=== PATIENT | male | born 1980 | race Caucasian/White ===

== ENCOUNTER 2016-08-08 06:16 | Observation (INO) | payer OTHER ==
[~2016-08-08] VITALS: Ht 185.4 cm; Wt 88.5 kg
--- NOTE | ~2016-08-08 | H ---
[facility] [address] [address] HISTORY AND PHYSICAL Name: LORENAMICHAEL DIANE Room #: 432-P [facility] Maggie Bee#: [id number] Admission: 08/08/16 Attend Phys: Ge Carrasco MD Discharge: 08/09/16 Date of : 82 Report #: [id number] THIS REPORT FOR: //name// For History and Physical, please see office documentation/handwritten note in the patient's medical record. By: [id number] Ge Carrasco MD /
--- NOTE | ~2016-08-08 | O ---
[facility] [place] [address] OPERATIVE REPORT Name: MICHAEL CARRILLO [facility] [id number] Admission: 08/08/16 Attend Phys: Ge Carrasco MD Discharge: Date of : 82 Report #: [id number] THIS REPORT FOR: //name// CC: Ge Carrasco [facility] unknown DATE OF SERVICE: 08/08/2016 PREOPERATIVE DIAGNOSIS: Herniated lumbar disk, L4-L5 with radiculopathy. POSTOPERATIVE DIAGNOSIS: Herniated lumbar disk, L4-L5 with radiculopathy. PROCEDURE: Decompressive laminectomy and diskectomy, L4-L5, right. INDICATIONS: This 35-year-old gentleman complains of rather severe progressive back and radiating right leg pain. Symptoms began after a lifting event at work. He has tried conservative measures including time, activity moderation, and epidural steroid injections without benefit. He has an MRI study, which shows a sizeable disk herniation at L4-L5, centrally and extending out toward the right side causing significant canal and foraminal stenosis. Given these findings and persistent symptoms, he has elected now to go ahead with decompressive laminectomy and diskectomy. I have discussed at length with the patient and his family, the nature of his problem and treatment options. I have also explained he does have some moderate degenerative disk change at other levels, and I expect he will experience some ongoing back discomfort, as a result of these more generalized degenerative problems. We have also discussed he may have some ongoing neurologic symptoms, even after successful disk decompression. He understands well and wishes to proceed. DESCRIPTION OF PROCEDURE: The patient was taken to the operating room, where he was placed under general anesthesia. Prophylactic intravenous antibiotics were administered. He was turned to the prone position. The low back was meticulously prepped and draped, and the appropriate level marked using C-arm guidance. A skin incision was then made just to the right of midline overlying the L4-L5 interspace. The dissection was carried through fascia and extending down along the paraspinal plane, retracting the paraspinal muscles out laterally. The lamina of L4 and L5 were identified. A small laminotomy in the inferior aspect of L4, and the superior aspect of L5 was created. This allowed good visualization of the dura and nerve root. The nerve root was found to be somewhat erythematous and prominent consistent with an underlying disk herniation. There was some chronic fibrosis, making dissection somewhat difficult. Gradually with blunt dissection, the nerve root and dura were freed up and were mobilized to the midline, allowing good visualization of the underlying disk. There was a small disk fragment, which had extruded in the canal, but much larger subligamentous disk herniation which caused significant deformity of the canal. The loose fragment was removed. The opening in the [address] [address] OPERATIVE REPORT Name: MICHAEL CARRILLO Room #: 432-P [facility] Rohit#: [id number] Admission: 08/08/16 Attend Phys: Ge Carrasco MD Discharge: Date of : 82 Report #: [id number] annulus and posterior longitudinal ligament was enlarged and pituitary rongeurs were used to decompress the extruded subligamentous disk, and the disk space itself. Several rather large free fragments of disk were removed. There was in addition moderate generalized degenerative disk debris, which was evacuated from the disk space itself. A c-arm x-ray with a probe in the disk space confirmed, that I was at the appropriate L4-L5 level. The disk was thoroughly decompressed. This resulted in significant improvement of the canal and improvement in nerve root compression. Once a thorough decompression had been completed, the nerve root was allowed to return to its normal position. The nerve was gently palpated as it exited the neural foramina, and no further impingement, there seemed to be present. The nerve was obviously erythematous and somewhat swollen, consistent with some chronic compression. No other significant abnormalities were identified. The wound was then copiously irrigated. Good hemostasis was established. 40 mg of Depo-Medrol were left around the nerve root in the epidural space. A very small piece of Gelfoam soaked in thrombin was left over the laminotomy defect. The paraspinal muscle and fascia were then reapproximated using multiple #1 Vicryl sutures. The subcutaneous tissues were closed with 2-0 Monocryl. The skin was closed with a running subcuticular 2-0 Prolene, supplemented with Steri-Strips. A sterile dressing was applied. The patient was then awakened and returned to the recovery room in good condition. <ELECTRONICALLY SIGNED> By: Ge Carrasco MD 08/09/16 0800 [id number] [id number] Ge Carrasco MD /nt
--- NOTE | ~2016-08-08 | D ---
[facility] [place] [address] DISCHARGE SUMMARY Name: MICHAEL CARRILLO Room #: 432-P [facility] Rohit#: [id number] Admission: 08/08/16 Attend Phys: Ge Carrasco MD Discharge: 08/09/16 Date of : 82 Report #: [id number] THIS REPORT FOR: //name// CC: Ge [facility] unknown FINAL DIAGNOSES: Herniated lumbar disk, L4-L5, right. OPERATIONS AND PROCEDURES: Decompressive laminectomy and diskectomy, L4-L5, right. HISTORY OF PRESENT ILLNESS: This 35-year-old gentleman injured the back while lifting at work several months ago. He has tried conservative measures including activity moderation and anti-inflammatories and epidural injections without benefit. The clinical radiographic findings appear consistent with a large herniated disk fragment with associated radiculopathy. He has elected to go ahead with surgical laminectomy and diskectomy. HOSPITAL COURSE: The patient was admitted and taken to the operating room. On 08/08, he underwent a one level right L4-L5 laminectomy and diskectomy procedure. A sizeable extruded disk was identified and removed. There was moderate generalized degenerative disk changes at that level, which was improved with debridement. The nerve root was found to be somewhat compressed, erythematous and inflamed consistent with chronic irritation. He tolerated this surgical procedure nicely. He was monitored overnight and advanced quickly to a regular diet and back to oral pain medications including oxycodone 5/325 one q. 4-6 hours p.r.n. for pain. He is independent, ambulating the hallway on the day of discharge and has resumed a regular diet without any problems. He is anxious for discharge home. DISCHARGE MEDICATIONS: Include previous medications with meloxicam 15 mg daily, Lexapro 20 mg daily, Zolpidem 10 mg at bedtime, gabapentin 300 mg 2 tablets daily and oxycodone 5/325 mg one q. 4-6 hours p.r.n. for pain. He will continue a gentle activity and exercise program at home. I have asked him to call me should there be any problems or questions. Otherwise, we will plan to follow up in my office in 2 weeks. By: 0816 1121 Ge Carrasco MD /nt
[~2016-08-08 06:16] MED LIST: BACK & BODY PA1 EACH PO; LEXAPRO20 MG PO; MELOXICAM15 MG PO; NEURONTIN 300300 M1 PO; NORCO 10-325 T1 EACH PO; ZOLPIDEM TARTRA10 MG PO
[2016-08-08 09:00] VITALS: BP 143/81
[2016-08-08 14:20] VITALS: BP 134/90
[2016-08-08 14:50] VITALS: BP 149/96
[2016-08-08 20:00] VITALS: BP 152/80
[2016-08-09 04:30] VITALS: BP 118/62
[2016-08-09 08:01] VITALS: BP 154/87
[2016-08-09 09:14] VITALS: BP 154/87
== END 2016-08-09 10:46 | disposition home or self-care (01) ==
LOC: TBA 06:16 → OR 06:16 → 4E 13:46 → OR 16:24 → 4E 08-09 10:46
DX: M51.16 Intervertebral disc disorders with radiculopathy, lumbar region (principal); M54.16 Radiculopathy, lumbar region; M51.26 Other intervertebral disc displacement, lumbar region; M51.36 Other intervertebral disc degeneration, lumbar region; I10 Essential (primary) hypertension; F41.9 Anxiety disorder, unspecified; F17.210 Nicotine dependence, cigarettes, uncomplicated
CPT/HCPCS: 50010; 50101; 50402; 50850; 56525; 62110; 62900; 70005

== ENCOUNTER 2017-01-05 06:52 | Day surgery (SDC) | payer OTHER ==
[2017-01-05] VITALS (7 sets, daily range): BP systolic 127–160; BP diastolic 72–93
[~2017-01-05] VITALS: Ht 185.4 cm; Wt 100.7 kg
--- NOTE | ~2017-01-05 | O ---
[facility] [place] [address] OPERATIVE REPORT Name: MICHAEL CARRILLO Room #: 411-P [facility]..#: [id number] Admission: 01/05/17 Attend Phys: Ge Carrasco MD Discharge: Date of : 82 Report #: [id number] THIS REPORT FOR: //name// CC: Ge [facility] unknown DATE OF SERVICE: 01/05/2017 PREOPERATIVE DIAGNOSIS: Recurrent herniated disk, L4-L5, left. POSTOPERATIVE DIAGNOSES: Recurrent herniated disk, L4-L5, left and moderate disk herniation L3-L4, left. PROCEDURE: Left L4-L5 laminectomy and diskectomy and left L3-L4 laminectomy and diskectomy. SURGEON: Ge Carrasco MD INDICATIONS: This 36-year-old gentleman has moderate multilevel degenerative lumbar disk disease with articular disk bulging at L4-L5 level. He already underwent a right-sided L4-L5 laminectomy and diskectomy procedure earlier this year. He initially did well, but then had recurrent symptoms extending to the opposite left side. Repeat MRI study suggests some recurrent disk herniation at L4-L5 with moderate degenerative disk bulging at L3-L4. We have reviewed treatment options. 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 Given this, we have elected to go ahead with a revision laminectomy, diskectomy directed at L4-L5 toward the left side. DESCRIPTION OF PROCEDURE: The patient was taken to the operating room where he was placed under general anesthesia. Prophylactic intravenous antibiotics were administered. He was positioned on the spine table, so the low back could be visualized with C-arm and x-ray. A longitudinal skin incision was made overlying the L4-L5 interspace. This was carried slightly proximally and distally to allow better exposure. The dissection was extended along the left paraspinal plane. The lamina was exposed and a small laminotomy created in the superior and inferior aspect of that space. The ligamentum was excised allowing good visualization of the canal. The dura and nerve root were somewhat prominent. They were gently retracted toward the midline. The disk was found to be quite prominent with a small annular tear. This was gently probed and a moderate amount of disk debris pushed forward. The disk was opened and debrided removing a moderate amount of degenerative disk debris. An intraoperative x-ray was obtained. Initially, this seemed that I was at the L4-L5 level, but there was a transitional vertebra at the lumbosacral junction and after discussing the films with Dr. Carrillo from Radiology, I felt that I was actually at the L3-L4 [address] [address] OPERATIVE REPORT Name: MICHAEL CARRILLO Room #: 411-P [facility] M.R.#: [id number] Admission: 01/05/17 Attend Phys: Ge Carrasco MD Discharge: Date of : 82 Report #: [id number] level. This level had also been noted to have some disk bulging and some annular tearing. I felt there was significant canal compromise and obviously abnormal disk and so further decompression of the disk and a limited laminectomy at that level was performed. This seemed to free up the nerve root nicely and the canal seemed to be well decompressed. Attention was then directed more distally with further dissection to expose the lamina at L4 and L5 on the left side. A slightly more aggressive laminectomy on the inferior aspect of L4 and the superior aspect of L5 was created. The canal here was also moderately tight as a result from a combination of narrow canal, some facet hypertrophy, some hypertrophy of ligamentum and/or fairly prominent disk bulge. The nerve and dura were retracted to midline and carefully protected. The disk was entered and once again, there was a good deal of loose degenerative disk material. I could palpate well across the midline to make sure there were no extruded fragments on the opposite side. The dissection was carried out laterally as well, undercutting the facet to make sure there were no fragments or loose debris in the lateral gutter. The disk was nicely decompressed, but there still was a rather significant degenerative disk with some broad-based bulging, which does still narrow the canal. Given this, a slightly greater laminectomy was performed and foraminotomy trying to make sure that the nerve root had sufficient room and was decompressed adequately. Another x-ray with a probe in this disk space was performed and this was also discussed with Dr. Carrillo confirming that I was at the appropriate preoperatively planned L4-L5 level. At this point, both levels seemed to be adequately decompressed. The nerve root seemed to be freed up and could be traced out to the neural foramina nicely. Both levels had a bit of oozing from small epidural veins. These were controlled with gentle pressure using cottonoids and thrombin and Gelfoam. Once satisfactory, dry field was established. A 40 mg of Depo-Medrol were left in the epidural space at each level and then the laminotomy was covered with a small sheet of Gelfoam soaked in thrombin. The fascia and muscle layer were then closed with multiple #1 Vicryl sutures. The subcutaneous tissues were closed with 0 Monocryl. The skin was closed with skin addis. A sterile dressing was applied. The patient was then awakened and returned to the recovery room in good condition. <ELECTRONICALLY SIGNED> By: Ge Carrasco MD 01/06/17 1436 [id number] Ge Carrasco MD /nt
[~2017-01-05 06:52] MED LIST changes: +ZANAFLEX PO
[2017-01-06 00:34] VITALS: BP 133/70
[2017-01-06 05:30] VITALS: BP 128/53
[2017-01-06 08:40] VITALS: BP 122/66
[2017-01-06 14:46] VITALS: BP 122/66
== END 2017-01-06 16:03 | disposition home or self-care (01) ==
LOC: OR 06:52 → TBA 06:52 → OR 14:45 → 4N 17:15 → OR 01-06 16:03
DX: M51.26 Other intervertebral disc displacement, lumbar region (principal); K21.9 Gastro-esophageal reflux disease without esophagitis; F32.89 Other specified depressive episodes; F17.210 Nicotine dependence, cigarettes, uncomplicated; Z98.890 Other specified postprocedural states; Z88.6 Allergy status to analgesic agent
CPT/HCPCS: 10790; 50010; 50101; 50402; 50704; 50850; 51412; 56525; 62110; 62900; 70005